=== PATIENT | male | born 1965 | race Caucasian/White ===

== ENCOUNTER 2018-12-28 13:46 | Inpatient (IN) | payer OTHER ==
[2018-12-28 14:37] VITALS: BMI 25.7
--- NOTE | 2018-12-28 15:59 | HP ---
CIWA Score Nausea/Vomitin-No Nausea/No Vomiting Muscle Tremors: 4-Moderate,w/Arms Extend Anxiety: 2 Agitation: 2 Paroxysmal Sweats: 4-Forehead w/Sweat Beads Orientation: 0-Oriented Tacttile Disturbances: 0-None Auditory Disturbances: 0-None Visual Disturbances: 0-None Headache: 0-None Present CIWA-Ar Total Score: 12 - Admission Criteria [facility]ASAS Guidelines: Admission for Medically Managed Detox: Requires at least one of the followin. CIWA greater than 12 2. Seizures within the past 24 hours 3. Delirium tremens within the past 24 hours 4. Hallucinations within the past 24 hours 5. Acute intervention needed for co occurring medical disorder 6. Acute intervention needed for co occurring psychiatric disorder 7. Severe withdrawal that cannot be handled at a lower level of care (continued vomiting, continued diarrhea, abnormal vital signs) requiring intravenous medication and/or fluids 8. Patient presents the following: None of the above Admission Criteria Met: Admission criteria not met Admission ROS [facility] - HPI Allergies/Adverse Reactions: Allergies Allergy/AdvReac Type Severity Reaction Status Date / Time Milk Containing Products AdvReac Verified 12/28/18 16:27 History of Present Illness: pt here requesting detox from etoh use , reports x 2 weeks 12 beers/day , denies tremors if not drinking , denies seizures ,blackouts , starts drinking in the mornings , latest use today 3 beers , current FABIOLA 0.066 reports his brought him today , he does not really want to be here and wants rx for DM meds. denies tobacco use . PMHX : DM II on meds , claims compliance , latest taken today , HTN PSHx : de nies Exam Limitations: Intoxication - Ebola screening Have you traveled outside of the country in the last 21 days: No Have you had contact with anyone from an Ebola affected area: No Do you have a fever: No - Review of Systems Constitutional: No Symptoms Reported EENT: reports: No Symptoms Reported Respiratory: reports: No Symptoms reported Cardiac: reports: No Symptoms Reported GI: reports: No Symptoms Reported : reports: No Symptoms Reported Musculoskeletal: reports: No Symptoms Reported Integumentary: reports: No Symptoms Reported Neuro: reports: No Symptoms reported Endocrine: reports: See HPI Psychiatric: reports: Orientated x3 Patient History - Smoking Cessation Smoking history: Never smoked - Substances abused Alcohol Substance route: Oral Frequency: Daily Amount used: 10 beers Age of first use: 8 Date of last use: 12/28/18 Admission Physical Exam S - Vital Signs Vital Signs: Vital Signs - 24 hr 12/28/18 14:33 Temperature 98.6 F Pulse Rate 80 Respiratory 20 Rate Blood Pressure 140/70 - Physical General Appearance: Yes: Mild Distress, Intoxicated, Tremorous, Anxious HEENTM: Yes: EOMI, Hearing grossly Normal, Normocephalic, Normal Voice Respiratory: Yes: Chest Non-Tender, Lungs Clear, Normal Breath Sounds, No Respiratory Distress, No Accessory Muscle Use Neck: Yes: No masses,lesions,Nodules, Trachea in good position Cardiology: Yes: Regular Rhythm, Regular Rate, S1, S2, Tachycardia Abdominal: Yes: Normal Bowel Sounds, Non Tender, Soft Musculoskeletal: Yes: full range of Motion, Gait Steady Extremities: Yes: Normal Range of Motion, Non-Tender, Tremors Neurological: Yes: Fully Oriented, Alert, Motor Strength 5/5, Normal Mood/Affect Integumentary: Yes: Warm, Diaphoresis - Diagnostic (1) Alcohol abuse Current Visit: Yes Status: Acute Breathalyzer - Breathalyzer Breathalyzer: 0.066 Urine Drug Screen - Test Device Lot number: [id number] Expiration date: 08/27/20 - Control Is test valid?: Yes - Results Drug screen NEGATIVE: Yes Inpatient Rehab Admission - Rehab Decision to Admit Inpatient rehab admission?: No
[2018-12-28] MEDS ORDERED: IBUPROFEN 400 MG TABLET (FP) PO PRN (16:26)
[2018-12-28] MEDS ORDERED: BISMUTH SUBSALICYLATE 524 MG/30 ML UD PO PRN (16:26)
[2018-12-28] MEDS ORDERED: MAG HYDROX/AL HYDROX/SIMETH 30 ML UNIT-DOSE CUP PO PRN (16:26)
[2018-12-28] MEDS ORDERED: MAGNESIUM HYDROX 2400MG/30ML ORAL SUSPENSION 30 ML CUP PO PRN (16:26)
[2018-12-28] MEDS ORDERED: MENTHOL/PHENOL 1 EACH UD MM PRN (16:26)
[2018-12-28] MEDS ORDERED: ACETAMINOPHEN 325 MG TABLET (FP) PO PRN ×2 (16:26)
[2018-12-28] MEDS ORDERED: MAGNESIUM CITRATE 300 ML BOTTLE PO PRN (16:26)
[2018-12-28] MEDS: diazePAM 5 MG TABLET PO PRN (17:58)
[2018-12-28] MEDS: THIAMINE HCL 100 MG TABLET (FP) PO SCH (21:28)
[2018-12-28] MEDS: diazePAM 5 MG TABLET PO SCH (21:30)
[2018-12-29] MEDS: diazePAM 5 MG TABLET PO SCH ×3 (05:09→22:00)
[2018-12-29] MEDS: hydrOXYzine PAMOATE 25 MG CAPSULE (FP) PO PRN ×2 (05:10→22:00)
[2018-12-29 09:45] LABS: HEMATOCRIT 37.3 % (35.4-49); HEMOGLOBIN 13.4 GM/dL (11.7-16.9); MCH 34.7 pg (25.7-33.7); MCHC 35.9 g/dl (32.0-35.9); MEAN CELL VOLUME 96.4 fl (80-96); PLATELET COUNT 88 K/MM3 (134-434); RBC 3.87 M/mm3 (4.00-5.60); RDW 16.7 % (11.9-15.9); WHITE BLOOD COUNT 5.7 K/mm3 (4.0-10.0)
[2018-12-29] MEDS: PRENATAL VITAMINS W/ FOLIC ACID TABLET (FP) PO SCH (09:47)
[2018-12-29 10:13] LABS: ALBUMIN 3.2 g/dl (3.4-5.0); BILIRUBIN,TOTAL 0.8 mg/dL (0.2-1); CALCIUM 9.1 mg/dL (8.5-10.1); CREATININE 0.6 mg/dL (0.55-1.3); POTASSIUM 4.1 mmol/L (3.5-5.1); TOT PROT 6.5 g/dl (6.4-8.2)
--- NOTE | 2018-12-29 10:25 | PN ---
S CIWA - CIWA Score Nausea/Vomitin Muscle Tremors: 2 Anxiety: 2 Agitation: 2 Paroxysmal Sweats: 2 Orientation: 0-Oriented Tacttile Disturbances: 1-Very Mild Itch/Numbness Auditory Disturbances: 0-None Visual Disturbances: 0-None Headache: 0-None Present CIWA-Ar Total Score: 11 S Progress Note (SOAP) Subjective: Patient w/ hx of alcohol use disorder c/o interrupted sleep, chills, sweats Objective: 12/29/18 10:22 Vital Signs Temperature 98.9 F 12/29/18 09:01 Pulse Rate 107 H 12/29/18 09:01 Respiratory Rate 18 12/29/18 09:01 Blood Pressure 126/85 12/29/18 09:01 O2 Sat by Pulse Oximetry (%) Laboratory Last Values WBC 5.7 K/mm3 (4.0-10.0) 12/29/18 07:40 RBC 3.87 M/mm3 (4.00-5.60) L 12/29/18 07:40 Hgb 13.4 GM/dL (11.7-16.9) 12/29/18 07:40 Hct 37.3 % (35.4-49) 12/29/18 07:40 MCV 96.4 fl (80-96) H 12/29/18 07:40 MCH 34.7 pg (25.7-33.7) H 12/29/18 07:40 MCHC 35.9 g/dl (32.0-35.9) 12/29/18 07:40 RDW 16.7 % (11.9-15.9) H 12/29/18 07:40 Plt Count 88 K/MM3 (134-434) L 12/29/18 07:40 MPV 9.0 fl (7.5-11.1) 12/29/18 07:40 Sodium 135 mmol/L (136-145) L 12/29/18 07:40 Potassium 4.1 mmol/L (3.5-5.1) 12/29/18 07:40 Chloride 95 mmol/L (98-107) L 12/29/18 07:40 Carbon Dioxide 32 mmol/L (21-32) 12/29/18 07:40 Anion Gap 8 MMOL/L (8-16) 12/29/18 07:40 BUN 7.0 mg/dL (7-18) 12/29/18 07:40 Creatinine 0.6 mg/dL (0.55-1.3) 12/29/18 07:40 Est GFR (CKD-EPI)AfAm 134.92 12/29/18 07:40 Est GFR (CKD-EPI)NonAf 116.41 12/29/18 07:40 POC Glucometer 293 UNITS (80-120) 12/29/18 05:07 Random Glucose 263 mg/dL (74-106) H 12/29/18 07:40 Calcium 9.1 mg/dL (8.5-10.1) 12/29/18 07:40 Total Bilirubin 0.8 mg/dL (0.2-1) 12/29/18 07:40 AST 92 U/L (15-37) H 12/29/18 07:40 ALT 112 U/L (13-61) H 12/29/18 07:40 Alkaline Phosphatase 167 U/L (45-117) H 12/29/18 07:40 Total Protein 6.5 g/dl (6.4-8.2) 12/29/18 07:40 Albumin 3.2 g/dl (3.4-5.0) L 12/29/18 07:40 Assessment: 12/29/18 10:22 Patient Aox3 no acute distress no abdominal tenderness full ROM no gait disturbance withdrawal sx low RBC d/t chronic alcohol abuse elevated LFTs d/t alcohol abuse Plan: repeat CMP d/c acetaminophen continue detox increase fluids follow up with primary care provider upon discharge continue to monitor
[2018-12-29] MEDS: metFORMIN HCL 500 MG TABLET (FP) PO SCH (17:09)
[2018-12-29] MEDS: THIAMINE HCL 100 MG TABLET (FP) PO SCH (22:00)
[2018-12-29] MEDS: MELATONIN 5 MG TABLETS PO PRN (22:01)
[2018-12-30] MEDS: diazePAM 5 MG TABLET PO SCH ×2 (05:48→17:17)
[2018-12-30] MEDS: metFORMIN HCL 500 MG TABLET (FP) PO SCH ×2 (06:01→17:16)
[2018-12-30] MEDS: diazePAM 5 MG TABLET PO PRN (08:53)
--- NOTE | 2018-12-30 09:43 | PN ---
S CIWA - CIWA Score Nausea/Vomitin-No Nausea/No Vomiting Muscle Tremors: None Anxiety: 3 Agitation: 0-Normal Activity Paroxysmal Sweats: 3 Orientation: 0-Oriented Tacttile Disturbances: 0-None Auditory Disturbances: 0-None Visual Disturbances: 0-None Headache: 2-Mild CIWA-Ar Total Score: 8 B[facility] Progress Note (SOAP) Subjective: c/o sweats, anxiety, and headache. Objective: 12/30/18 09:39 Vital Signs 12/30/18 12/30/18 12/30/18 03:30 06:01 09:03 Temperature 97.1 F L 96 F L Pulse Rate 59 L 58 L Respiratory 18 18 20 Rate Blood Pressure 130/71 132/74 Lab Results WBC 5.7 K/mm3 (4.0-10.0) 12/29/18 07:40 RBC 3.87 M/mm3 (4.00-5.60) L 12/29/18 07:40 Hgb 13.4 GM/dL (11.7-16.9) 12/29/18 07:40 Hct 37.3 % (35.4-49) 12/29/18 07:40 MCV 96.4 fl (80-96) H 12/29/18 07:40 MCHC 35.9 g/dl (32.0-35.9) 12/29/18 07:40 RDW 16.7 % (11.9-15.9) H 12/29/18 07:40 Plt Count 88 K/MM3 (134-434) L 12/29/18 07:40 Sodium 135 mmol/L (136-145) L 12/29/18 07:40 Potassium 4.1 mmol/L (3.5-5.1) 12/29/18 07:40 Chloride 95 mmol/L (98-107) L 12/29/18 07:40 Carbon Dioxide 32 mmol/L (21-32) 12/29/18 07:40 Anion Gap 8 MMOL/L (8-16) 12/29/18 07:40 BUN 7.0 mg/dL (7-18) 12/29/18 07:40 Creatinine 0.6 mg/dL (0.55-1.3) 12/29/18 07:40 Random Glucose 263 mg/dL (74-106) H 12/29/18 07:40 Calcium 9.1 mg/dL (8.5-10.1) 12/29/18 07:40 Labs noted with high glucose. Assessment: 12/30/18 09:41 AOX3, in no acute respiratory distress. Full ROM, ambulating in the unit. Withdrawal symptoms. elevated serum glucose. 12/30/18 09:41 Plan: continue detox. continue metformin.
[2018-12-30] MEDS: PRENATAL VITAMINS W/ FOLIC ACID TABLET (FP) PO SCH (10:09)
[2018-12-30] MEDS: hydrOXYzine PAMOATE 25 MG CAPSULE (FP) PO PRN (21:42)
[2018-12-30] MEDS: THIAMINE HCL 100 MG TABLET (FP) PO SCH (21:42)
[2018-12-30] MEDS: MELATONIN 5 MG TABLETS PO PRN (21:43)
[2018-12-31] MEDS ORDERED: diazePAM 5 MG TABLET PO ONE (06:00)
[2018-12-31] MEDS: metFORMIN HCL 500 MG TABLET (FP) PO SCH (06:05)
[2018-12-31 09:05] VITALS: BP 114/72; PULSE 75; TEMP 97.6
--- NOTE | 2018-12-31 10:01 | DS ---
[facility] Detox Discharge Summary Admission Date: 12/28/18 Discharge Date: 12/31/18 - History Present History: Alcohol Dependence Additional Comments: 53 years old male admitted on 12/28/18 for alcohol withdrawal sx management treated with valium detox regimen patient tolerated well alert oriented x 3 respiratory clear lung bilaterally on auscultation abdomen soft no rebound tenderness extremities full range of motion - Physical Exam Results Vital Signs: Vital Signs Temperature 97.6 F 12/31/18 09:05 Pulse Rate 75 12/31/18 09:05 Respiratory Rate 18 12/31/18 09:05 Blood Pressure 114/72 12/31/18 09:05 O2 Sat by Pulse Oximetry (%) Pertinent Admission Physical Exam Findings: alcohol withdrawal sx Laboratory Last Values WBC 5.7 K/mm3 (4.0-10.0) 12/29/18 07:40 RBC 3.87 M/mm3 (4.00-5.60) L 12/29/18 07:40 Hgb 13.4 GM/dL (11.7-16.9) 12/29/18 07:40 Hct 37.3 % (35.4-49) 12/29/18 07:40 MCV 96.4 fl (80-96) H 12/29/18 07:40 MCH 34.7 pg (25.7-33.7) H 12/29/18 07:40 MCHC 35.9 g/dl (32.0-35.9) 12/29/18 07:40 RDW 16.7 % (11.9-15.9) H 12/29/18 07:40 Plt Count 88 K/MM3 (134-434) L 12/29/18 07:40 MPV 9.0 fl (7.5-11.1) 12/29/18 07:40 Sodium 135 mmol/L (136-145) L 12/29/18 07:40 Potassium 4.1 mmol/L (3.5-5.1) 12/29/18 07:40 Chloride 95 mmol/L (98-107) L 12/29/18 07:40 Carbon Dioxide 32 mmol/L (21-32) 12/29/18 07:40 Anion Gap 8 MMOL/L (8-16) 12/29/18 07:40 BUN 7.0 mg/dL (7-18) 12/29/18 07:40 Creatinine 0.6 mg/dL (0.55-1.3) 12/29/18 07:40 Est GFR (CKD-EPI)AfAm 134.92 12/29/18 07:40 Est GFR (CKD-EPI)NonAf 116.41 12/29/18 07:40 POC Glucometer 256 UNITS (80-120) 12/31/18 05:48 Random Glucose 263 mg/dL (74-106) H 12/29/18 07:40 Calcium 9.1 mg/dL (8.5-10.1) 12/29/18 07:40 Total Bilirubin 0.8 mg/dL (0.2-1) 12/29/18 07:40 AST 92 U/L (15-37) H 12/29/18 07:40 ALT 112 U/L (13-61) H 12/29/18 07:40 Alkaline Phosphatase 167 U/L (45-117) H 12/29/18 07:40 Total Protein 6.5 g/dl (6.4-8.2) 12/29/18 07:40 Albumin 3.2 g/dl (3.4-5.0) L 12/29/18 07:40 RPR Titer Nonreactive (NONREACTIVE) 12/29/18 07:40 lab noted low plt discontinue motrin long history of diabetes with glucose elevation - Treatment Hospital Course: Detox Protocol Followed, Detoxed Safely, Responded well, Discharged Condition Good, Rehab Referral Accepted Patient has Accepted [facility] Referral [facility] - Medication Discharge Medications: Ambulatory Orders Metformin HCl [Glucophage] 1,000 mg PO BID 12/28/18 Sitagliptin Phosphate [Januvia] 100 mg PO DAILY 12/28/18 - Diagnosis (1) Diabetes mellitus type II, controlled Status: Chronic Qualifiers: Diabetes mellitus penitentiary insulin use: unspecified ocean transportation intermediary insulin use status Diabetes mellitus complication status: with unspecified complications Qualified Code(s): E11.8 - Type 2 diabetes mellitus with unspecified complications (2) Alcohol abuse Status: Acute - AMA Did Patient Leave Against Medical Advice: No CIWA Score - CIWA Score Nausea/Vomitin-No Nausea/No Vomiting Muscle Tremors: None Anxiety: 2 Agitation: 0-Normal Activity Paroxysmal Sweats: 1-Minimal Palms Moist Orientation: 0-Oriented Tacttile Disturbances: 0-None Auditory Disturbances: 0-None Visual Disturbances: 0-None Headache: 1-Very Mild CIWA-Ar Total Score: 4
[2018-12-31] MEDS: PRENATAL VITAMINS W/ FOLIC ACID TABLET (FP) PO SCH (10:19)
== END 2018-12-31 12:40 | disposition home or self-care (01) | DRG 775 ==
LOC: YASAS 13:46 → Y3N 16:59
PROVIDERS: ADMIT Allergy & Immunology; ATTEND Allergy & Immunology
PROC: HZ2ZZZZ Detoxification Services for Substance Abuse Treatment (ICD-10-PCS; principal; 2018-12-28)
DX: F10.230 Alcohol dependence with withdrawal, uncomplicated (principal); F10.220 Alcohol dependence with intoxication, uncomplicated; E11.65 Type 2 diabetes mellitus with hyperglycemia; R94.5 Abnormal results of liver function studies; R00.0 Tachycardia, unspecified; R71.8 Other abnormality of red blood cells; Z91.011 Allergy to milk products
CPT/HCPCS: 36415; 80053; 82962; 85027; 86593

== ENCOUNTER 2019-04-09 15:14 | Emergency (ER) | payer OTHER ==
[2019-04-09 16:00] VITALS: BMI 26.6
--- NOTE | 2019-04-09 16:13 | PDOC ---
History of Present Illness - General Chief Complaint: Alcohol intoxication Stated Complaint: FALL/INTOXICATED Time Seen by Provider: 04/09/19 16:02 History Source: Patient Exam Limitations: No Limitations - History of Present Illness Initial Comments: 04/09/19 16:04 [id number] with h/o EtOH use disorder who was sent here from [facility] Admissions for facial trauma stated 2/2 ground-level fall yesterday while he was drunk. He notes having missed tripped over the [id number] step on a set of stairs and falling onto his face. He denies LOC, neck pain, NATH, any facial pain, loose or missing or broken teeth, or any other new symptoms. Has been walking normally since then, no balance issues, states he has been drinking today and feels fine. Past History - Past Medical History Allergies/Adverse Reactions: Allergies Allergy/AdvReac Type Severity Reaction Status Date / Time Milk Containing Products AdvReac Verified 04/09/19 15:58 Home Medications: Ambulatory Orders Metformin HCl [Glucophage] 1,000 mg PO BID 12/28/18 Sitagliptin Phosphate [Januvia] 100 mg PO DAILY 12/28/18 Asthma: No Cardiac Disorders: No COPD: No Diabetes: Yes GI Disorders: No Disorders: No HTN: No Kidney Stones: No Seizures: No - Surgical History Abdominal Surgery: No Appendectomy: No Cardiac Surgery: No Cholecystectomy: No Lung Surgery: No Neurologic Surgery: No Orthopedic Surgery: No - Reproductive History Testicular Surgery: No - Psycho Social/Smoking Cessation Hx Smoking History: Smoker current status UNK Have you smoked in the past 12 months: No Information on smoking cessation initiated: No Hx Alcohol Use: Yes Drug/Substance Use Hx: No Hx Substance Use Treatment: No Trauma Specific PMHX - Complaint Specific PMHX Arthritis: No Review of Systems - Review of Systems Able to Perform ROS?: Yes Comments:: 04/09/19 16:18 GEN: no fever, chills, malaise, or generalized weakness HEENT: upper lip swelling, no ear pain, congestion, sore throat, vision change, or eye pain CV: no chest pain, palpitations, lightheadedness, syncope, or edema RESP: no SOB, wheezing, or cough GI: no abdominal pain, nausea, vomiting, diarrhea, constipation, or rectal bleed : no dysuria, hematuria, or discharge MSK: no muscle weakness or pain, no joint swelling or pain NEURO: no headache, vertigo, numbness, tingling, or focal weakness PSYCH: EtOH use, no SI, HI, or behavior change SKIN: abrasions, no jaundice, rash, or unexplained bruises ROS otherwise negative except as noted in HPI *Physical Exam - Vital Signs Last Vital Signs Temp Pulse Resp BP Pulse Ox 98.5 F 83 18 145/83 97 04/09/19 15:58 04/09/19 15:58 04/09/19 15:58 04/09/19 15:58 04/09/19 15:58 - Physical Exam GENERAL: Arrives BIBEMS on stretcher, not on backboard, no C-collar A:protecting airway B: equal bilateral breath sounds C: extremities wwp x4, 2+ radial and DP pulses bilaterally D: GCS 15, A/Ox4, moving all extremities EXPOSURE: HEENT: superficial abrasions and right inferior orbital mild soft tissue swelling/contusion, dried blood in nares but no septal hematoma, chronic- appearing nasal septal perforation, but otherwise no obvious facial deformity, no cephalohematoma, no scalp laceration, no raccoon eyes, no proptosis, PERRLA, EOMI without pain, no obvious CSF rhinorrhea, no epistaxis, no jaw malocclusion , no loose teeth, no pacheco sign, no hemotympanum, no obvious CSF otorrhea CHEST WALL: no flail chest, no costal stepoff or deformity, no bruises or lesions CARDIOVASCULAR: regular rhythm, normal S1S2, no MGR, capillary refill <2 seconds RESPIRATORY: symmetric chest expansion on inspiration, no increased WOB, no cyanosis ABDOMEN: abdomen soft, nondistendedd, nontender, pelvis stable EXTREMITIES: no obvious deformity, full ROM without pain NECK&BACK: no neck or back hematoma, no midline vertebral tenderness C/T/L spine , no spinal step-off or deformity, no paraspinous ttp CTL spine NEURO: good rectal tone, no saddle anesthesia,CN II-XII grossly intact, 5/5 strength and intact sensation throughout : no blood at the urethral meatus, normal external genitalia, no CVA tenderness SKIN: warm and dry, no pallor, no additional lacerations except as noted in Extremity section, no abrasions ED Treatment Course - RADIOLOGY Radiology Studies Ordered: Category Date Time Status FACIAL BONES CT W/O CONTRAST [CT] Stat CT Scan 04/09/19 16:[address] WITHOUT CONTRAST [CT] Stat CT Scan 04/09/19 16:02 Ordered Medical Decision Making - Medical Decision Making 04/09/19 16:20 Pt p/w GLF yesterday, as sent from [facility]. Initial Vital Signs Temp Pulse Resp BP Pulse Ox 98.5 F 83 18 145/83 97 04/09/19 15:58 04/09/19 15:58 04/09/19 15:58 04/09/19 15:58 04/09/19 15:58 Exam: As noted in Physical Exam section. DDX IBNLT: scalp contusion, concussion, less likely ICH, skull fracture, facial bone fracture. Patient describes mechanical fall and has full memory of the event. W/U ordered: Head CT, facial bones CT TX ordered: Tdap Laboratory Tests 04/09/19 17:[address]/HEAD CT WITHOUT CONTRAST Cranial CT without contrast Clinical information: fall No CT evidence of intracranial injury or calvarial fracture. There is no extra-axial fluid collection. No obvious mass lesion or infarct is noted. Mild bilateral nonspecific frontoparietal subcortical white matter low-attenuation is seen without mass effect probably on the basis of microvascular ischemic gliosis given the patient's chronologic age. Correlate clinically. Involutional changes are noted with mild ventricular dilatation. Impression: No CT evidence of acute intracranial pathology. Mild bilateral frontoparietal subcortical white matter hypodensity is noted probably representing mild chronic microvascular ischemic changes. Correlate clinically. CT/FACIAL BONES CT W/O CONTRAST Facial bone CT without contrast Clinical information: fall Multiplanar imaging was performed. No definite acute fracture is identified involving the maxillofacial orbital structures. A small fracture is noted involving the medial wall of the left orbit which is probably chronic. No prior CT studies are available at this facility for direct comparison. The intraorbital soft tissue structures demonstrate no discrete noncontrast pathology. No intraorbital hematoma or edema is visualized. There is no obvious CT evidence of ocular pathology. Superficial soft tissue edema is noted at the level of the inferior orbital rim. A 1.3 cm full-thickness perforation is seen within the cartilaginous nasal septum. Minimal to mild bilateral maxillary sinus mucosal thickening. DISCHARGE The Pt has gotten significant relief of symptoms while in the ED. Workup is not concerning for emergency-level pathology at this time. The Pt is appropriate for discharge back to [facility] with close outpatient follow up. They are comfortable with this plan and will follow up with PCP in 1-3 days. Specific return precautions are discussed and they will come back to the ER if necessary. Discharge - Discharge Information Problems reviewed: Yes Clinical Impression/Diagnosis: Alcohol abuse, Fall from ground level, Nasal septal perforation Facial contusion Qualifiers: Encounter type: initial encounter Qualified Code(s): S00.83XA - Contusion of other part of head, initial encounter Condition: Stable Disposition: HOME - Admission No - Follow up/Referral Referrals: Jackie Wren MD [Primary Care Provider] - Lei Soto MD [Staff Physician] - - Patient Discharge Instructions Additional Instructions: You were seen in the ER for a head injury. We took a CT scan which showed no new problems. We gave you pain medication for your symptoms which did help. After our assessment, we do not believe you are having a medical emergency at this time, and we believe you are safe to go [facility]. Take Motrin and Tylenol as needed for pain. Follow up with your primary care provider in the next 1-3 days. Please come back to the ER at any time, 24 hours a day, for any new or worsening symptoms, especially severe pain, vision troubles, difficulty walking/balancing, passing out, or other symptoms. If you are having symptoms that make it unsafe to drive, please call 911. You have a nasal septal perforation, which is a hole in the septum of your nose. Please follow up with the ear, nose, and throat doctor this week. We are giving you referral information in this packet, so please call them [facility] when their clinic opens in the morning. - Post Discharge Activity
[2019-04-09] MEDS ORDERED: DIPHTH,PERTUSS(ACELL),TET 0.5 ML DISP.SYRIN IM ONE ×2 (16:20→17:07)
[2019-04-09 18:47] VITALS: BP 146/89; PULSE 86; TEMP 98.2
--- NOTE | 2019-04-21 12:14 | PDOC ---
Documentation entered by Mike Potts SCRIBE, acting as scribe for Izaiah Broussard MD. Izaiah Broussard MD: This documentation has been prepared by the Delroy roque Nirvannie, SCRIBE, under my direction and personally reviewed by me in its entirety. I confirm that the documentation accurately reflects all work, treatment, procedures, and medical decision making performed by me. Attending Attestation - Resident Resident Name: Barbara Ingram - ED Attending Attestation I have performed the following: I have examined & evaluated the patient, The case was reviewed & discussed with the resident, I agree w/resident's findings & plan, Exceptions are as noted - HPI HPI: 04/09/19 16:21 The patient is a 53 year old male, with a significant past medical history of DM , HTN, and alcohol abuse, who presents to the emergency department s/p unwitnessed fall yesterday with facial trauma and eye swelling. Pt recalls falling yesterday in the street due to uneven sidewalk, recalls putting his hand out, but struck his face on the ground - there was no loc, headache, n/v, neck pain, back pain. Patient states that the bleeding stopped on its own he went to [facility] today for detox and they sent him here for further evaluation. Patient denies any other symptoms including chest pain, shortness of breath, abdominal pain, back pain, neck pain, focal numbness, tingling, weakness. Social: Daily alcohol use, remote cocaine use Physicail Exam: GENERAL: The patient is awake, alert, and fully oriented, Nontoxic - in no acute distress. HEAD: Normocephalic, atraumatic. EYES: extraocular movements intact, sclera anicteric, conjunctiva clear. ABrasion/swelling infior to the L orbit without focal tenderness ENT: Normal voice, Moist mucous membranes. poor dentition, no missing teeth, no focal tenderness or bleeding. Crusted blood around mouth and nares. NECK: Normal range of motion, supple No focal midline cervical/thoracic/lumbar tenderness LUNGS: Breath sounds equal, clear to auscultation bilaterally. No wheezes, no rhonchi, no rales. HEART: Regular rate and rhythm, normal S1 and S2 without murmur, rub or gallop. ABDOMEN: Soft, nontender, No guarding, no rebound. No CVA tenderness EXTREMITIES: Normal range of motion, no edema. Normal range of motion of all extremities NEUROLOGICAL: No facial assymetry, Normal speech, PSYCH: Normal mood, normal affect. SKIN: Warm, Dry, normal turgor, CT negative for acute fx noted for perforated septum - likely due to remote cocaine use. will dc back to detox - Physicial Exam PE: 04/21/19 12:14 see above - Medical Decision Making 04/21/19 12:14 see above
== END 2019-04-09 18:51 | disposition home or self-care (01) ==
LOC: JER 15:14
PROC: 3E0234Z Introduction of Serum, Toxoid and Vaccine into Muscle, Percutaneous Approach (ICD-10-PCS; principal; 2019-04-09)
DX: S00.83XA Contusion of other part of head, initial encounter (principal); J34.89 Other specified disorders of nose and nasal sinuses; F10.10 Alcohol abuse, uncomplicated; W18.39XA Other fall on same level, initial encounter; Y93.89 Activity, other specified; Y92.480 Sidewalk as the place of occurrence of the external cause; Y99.8 Other external cause status
CPT/HCPCS: 70450-TC; 70486-TC; 82962; 90471; 90715; 99284-25